=== PATIENT | male | born 1980 | race Caucasian/White ===

== ENCOUNTER 2018-07-23 16:30 | Emergency (ER) | payer BC, SELFPAY ==
[2018-07-23] MEDS ORDERED: AMOXicillin 250 MG CAP ONE ×2 (17:02→17:03)
== END 2018-07-23 18:22 | disposition home or self-care (01) ==
LOC: BURERS 16:30
DX: I88.9 Nonspecific lymphadenitis, unspecified (principal); K14.8 Other diseases of tongue; F17.210 Nicotine dependence, cigarettes, uncomplicated
CPT/HCPCS: 99282